=== PATIENT | male | born 1955 | race Caucasian/White ===

== ENCOUNTER 2017-10-27 13:35 | Emergency (ER) | payer BC ==
[2017-10-27 15:19] VITALS: BP 126/60
--- NOTE | 2017-10-27 22:09 | ED ---
Donte Interiano Gabriel, scribed for Oneyda Melgar MD on 10/27/17 at 1452 . Substance Abuse/Use - HPI Summary HPI Summary: This patient is a 62 year old M BIBA to [facility] with a chief complaint of anxiety since earlier this morning. Patient reports SOB (hours after use) for an hour and anxiety. Patient denies n/v, CP, VENEGAS, ear ache, ABD pain, back pain, melena, hematuria, and depression. Patient was at a reunion in [place] last night drinking and did some cocaine. Patient has a history of anxiety and CAD. He claims he is calming down now and wishes to leave. He is refusing a Trop test. There was an offered to draw the troponin and call him with the results and informed there would be no drug screening, he still refused. - History Of Current Complaint Chief Complaint: EDSubstanceAbuse Stated Complaint: CHEST PAIN Time Seen by Provider: 10/27/17 13:42 Hx Obtained From: Patient Ingestion History: Type/Name Of Drug - cocaine Overdose Characteristics: Inhalation Severity Initially: Moderate Severity Currently: None Character: Anxious Associated Signs And Symptoms: Negative - n/v, CP, VENEGAS, ear ache, ABD pain, back pain, melena, hematuria, and depression, Other: - SOB (hours after use) for an hour and anxiety - Allergies/Home Medications Home Medications: Home Medications Aspirin EC Low Dose* [Ecotrin EC Low Dose 81 MG*] 81 mg PO DAILY 10/27/17 [ History Confirmed 10/27/17] Clopidogrel TAB* [Plavix TAB*] 75 mg PO DAILY 10/27/17 [History Confirmed ] Ezetimibe TAB* [Zetia TAB*] 10 mg PO DAILY 10/27/17 [History Confirmed 10/27/17] LORazepam TAB(*) [Ativan 1 MG TAB (*)] 1 mg PO DAILY PRN 10/27/17 [History Confirmed 10/27/17] Losartan TAB* [Cozaar TAB*] 12.5 mg PO DAILY 10/27/17 [History Confirmed ] Metoprolol Tartrate TAB* [Lopressor TAB*] 12.5 mg PO DAILY 10/27/17 [History Confirmed 10/27/17] Omeprazole CAP* [Prilosec CAP* 20 MG] 40 mg PO BID 10/27/17 [History Confirmed 10/27/17] Ranolazine (NF) [Ranexa (NF)] 1,000 mg PO BID 10/27/17 [History Confirmed ] Rosuvastatin (NF) [Crestor (NF)] 40 mg PO DAILY 10/27/17 [History Confirmed 07/06] Sertraline* [Zoloft*] 100 mg PO BID 10/27/17 [History Confirmed 10/27/17] PMH/Surg Hx/FS Hx/Imm Hx Previously Healthy: No Cardiovascular History: Reports: Other Cardiovascular Problems/Disorders - CABG and 12 stents Psychiatric History: Reports: Hx Anxiety Infectious Disease History: Yes Infectious Disease History: Denies: Traveled Outside the [place] in Last 30 Days - Family History Known Family History: Positive: Cardiac Disease - Social History Alcohol Use: Rare Substance Use Type: Reports: Cocaine Substance Use Comment - Amount & Last Used: cocaine use 10/27/17 Hx Tobacco Use: No Smoking Status (MU): Never Smoked Tobacco Review of Systems Negative: Sore Throat, Ear Ache Negative: Chest Pain Positive: Shortness Of Breath - that resolved Negative: Abdominal Pain, Vomiting, Nausea Negative: dysuria, hematuria Negative: Headache Positive: Anxious. Negative: Depressed All Other Systems Reviewed And Are Negative: No Physical Exam - Summary Physical Exam Summary: Appearance: Alert, conversive, nontoxic appearing Skin: Warm, dry, no mottling, no rashes, no contusions HEENT: EOMI, PERRL, moist mucous membranes Neck: No masses on the neck, supple Respiratory: Clear to auscultation, breath sounds present, no rales, no rhonchi , no wheezes Cardiovascular: RRR, pulses are symmetrical in both lower and upper extremities Abdomen: Soft, non-tender Bowel Sounds: Present Musculoskeletal: No CVA tenderness, no obvious deformity, moving all extremities in a grossly normal manner Neurological: A&Ox3, CN II-XII Intact, moving all extremities symmetrically Psychiatric: Normal affect and mood Triage Information Reviewed: Yes Vital Signs On Initial Exam: Initial Vitals Temp Pulse Resp BP Pulse Ox 98.7 F 63 20 144/72 97 10/27/17 13:40 10/27/17 13:40 10/27/17 13:40 10/27/17 13:40 10/27/17 13:40 Vital Signs Reviewed: Yes - [place] Coma Scale Coma Scale Total: 15 Diagnostics - Vital Signs Vital Signs Temp Pulse Resp BP Pulse Ox 10/27/17 14:00 14 140/68 10/27/17 13:41 9 10/27/17 13:40 98.7 F 63 20 144/72 97 - Laboratory Lab Statement: Any lab studies that have been ordered have been reviewed, and results considered in the medical decision making process. - EKG 15:02 Cardiac Rate: Bradycardia EKG Rhythm: Sinus Bradycardia - 54 BPM EKG Interpretation: QRS Prolonged, QCT is normal,mild non-specific ST/T wave changes, No [place] Course/Dx - Course Assessment/Plan: This patient is a 62 year old M BIBA to [facility] with a chief complaint of anxiety since earlier this morning. Patient was at a reunion in [place] last night drinking and did some cocaine. He is refusing a Trop test. There was an offered to draw the troponin and call him with the results and informed there would be no drug screening, he still refused. I discussed with pt the risks of leaving and the benefits of being fully evaluated. pt felt very strongly that this was due to his anxiety. Pt left ama. An EKG reveals No STEMI and sinus bradycardia. There is obvious concern for an NJ but patient refuses to stay. 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 The patient is agreeable with this plan. - Diagnoses Provider Diagnoses: Cocaine abuse, Shortness of breath Discharge - Discharge Plan Condition: Stable Disposition: AGAINST MEDICAL ADVICE Patient Education Materials: Chest Pain (ED) Referrals: No Primary Care Phys,NOPCP [Primary Care Provider] - Additional Instructions: Please take all medications as previously instructed. REturn if worse or any new symptoms. Please follow up with your plastic die maker apprentice IMMEDIATELY upon return to [facility]. If you change your mind, please return to the ED for re-evaluation which would include repeat EKG, blood work including a troponin. Avoid drinking alcohol and any drug use. The documentation as recorded by the Donte whittington Gabriel accurately reflects the service I personally performed and the decisions made by me, Oneyda Melgar MD.
== END 2017-10-27 15:18 | disposition left against medical advice (07) ==
LOC: ED 13:35
DX: F14.10 Cocaine abuse, uncomplicated (principal); R06.02 Shortness of breath; F41.9 Anxiety disorder, unspecified
CPT/HCPCS: 93005; 99282